=== PATIENT | female | born 1985 | race African-American/Black ===

== ENCOUNTER 2016-05-05 14:08 | Emergency (ER) | payer SELFPAY ==
[~2016-05-05 14:08] MED LIST: AMOXICILLIN500 M PO; ANTIBIOTIC; BACTRIM DS TABL1 TAB PO; CIPRO500 M1 PO; CLINDAMYCIN IV; FEOSOL1 TAB PO; FLAGYL500 MG PO; GUIATUSS AC SY120 ML PO; HYDROCODON-ACE1 EAC8; IRON325 M1 PO; MIRALAX17 G1 PO; OMEPRAZOLE20 M2 PO; PERCOCET 5MG/AP1 TAB PO; PRENATAL1 EACH PO; ROCEPHIN1 G/VIAL IV; XARELTO20 MG PO; ZITHROMAX250MG Z-PAK PO; ZOFRAN ODT4 MG/UDTAB PO; [UNRECOGNIZED DRUG - OTHER] IV
== END 2016-05-05 14:15 | disposition left against medical advice (07) ==
LOC: EDMED 14:08
DX: Z53.21 Procedure and treatment not carried out due to patient leaving prior to being seen by health care provider (principal)